=== PATIENT | female | born 1975 | race Caucasian/White ===

== ENCOUNTER 2016-11-25 11:20 | Emergency (ER) | payer MEDICAID ==
[2016-11-25 12:36] LABS: BASOPHILS 0.6 % (0.0-2.0); EOSINOPHILS 2.1 % (0-7); HEMATOCRIT 28.8 % (36.0-48.0); HEMOGLOBIN 7.9 g/dL (12-16); IMMATURE GRANULOCYTES 0.1 % (0-5); LYMPHOCYTES 18.2 % (15-50); MCHC 27.4 g/dL (31.0-37.0); MCV 64.4 fL (80.0-100.0); MEAN PLATELET VOLUME 9.7 fL (7.4-10.4); MONOCYTES 7.5 % (2-11); NEUTROPHILS 71.5 % (40-80); PLATELET COUNT 300 10x3/uL (130-400); RBC 4.47 10x6/uL (4.00-5.40); RDW 20.4 % (11.5-14.5); WBC 6.8 10x3/uL (4.8-10.8)
[2016-11-25 12:37] LABS: MCH 17.7 pg (26.0-34.0)
[2016-11-25 12:49] LABS: ALKALINE PHOSPHATASE 63 U/L (46-116); ALT (SGPT) 18 U/L (10-68); BILIRUBIN - TOTAL 0.15 mg/dL (0.2-1.3); CALC OSMOLALITY 280 mosm/kg (275-300); CALCIUM 8.8 mg/dL (8.5-10.1); CARBON DIOXIDE 27.4 mmol/L (21.0-32.0); CHLORIDE - SERUM 106 mmol/L (98-107); CREATININE - SERUM 0.5 mg/dL (0.6-1.3); GLUCOSE 102 mg/dL (74-106); POTASSIUM - SERUM 3.8 mmol/L (3.5-5.1); PROTEIN - SERUM 7.3 g/dL (6.4-8.2); SODIUM 142 mmol/L (136-145); UREA NITROGEN 8 mg/dL (7-18); eGFR NON AFRICAN AMERICAN > 90 mL/min (90-120)
[2016-11-25 15:20] LABS: INR 0.99 (0.85-1.17)
[2016-11-25 15:22] LABS: UDS - AMPHET NEGATIVE QUAL (NEGATIVE); UDS - BARB POSITIVE QUAL (NEGATIVE); UDS - BENZO NEGATIVE QUAL (NEGATIVE); UDS - COCAINE NEGATIVE QUAL (NEGATIVE); UDS - METH NEGATIVE QUAL (NEGATIVE); UDS - OPIATE POSITIVE QUAL (NEGATIVE); UDS - PCP NEGATIVE QUAL (NEGATIVE); UDS - THC NEGATIVE QUAL (NEGATIVE)
[2016-11-25 15:24] LABS: APPEARANCE CLEAR (CLEAR); COLOR YELLOW (YELLOW)
[2016-11-25 15:25] LABS: BILIRUBIN NEGATIVE (NEGATIVE); GLUCOSE NEGATIVE (NEGATIVE); KETONE NEGATIVE (NEGATIVE); LEUKOCYTE ESTERASE TRACE (NEGATIVE); NITRITE NEGATIVE (NEGATIVE); PROTEIN NEGATIVE (NEGATIVE); UROBILINOGEN NORMAL (NORMAL)
[2016-11-25 15:26] LABS: BACTERIA FEW /hpf (NONE SEEN); EPITHELIAL CELLS 0-5 /hpf (0-5); MUCUS <1+ /lpf (NONE SEEN); RED CELLS - URINE NONE SEEN /hpf (0-5); WHITE CELLS - URINE 0-5 /hpf (0-5)
[2016-11-25 15:28] LABS: HCG URINE NEGATIVE (NEGATIVE)
== END 2016-11-25 17:44 | disposition home or self-care (01) ==
LOC: D.ER 11:20
PROVIDERS: Emergency Medicine; Nurse Practitioner Family
DX: R51 Headache (principal); D64.9 Anemia, unspecified

== ENCOUNTER 2016-12-10 09:45 | Emergency (ER) | payer MEDICAID | END 2016-12-10 11:29 | disposition home or self-care (01) | LOC: D.ER 09:45 | DX: R51 Headache (principal) ==

== ENCOUNTER 2017-05-11 15:39 | Emergency (ER) | payer MEDICAID ==
[2017-05-11 16:39] LABS: APPEARANCE HAZY (CLEAR); BILIRUBIN NEGATIVE (NEGATIVE); COLOR YELLOW (YELLOW); GLUCOSE NEGATIVE (NEGATIVE); KETONE NEGATIVE (NEGATIVE); LEUKOCYTE ESTERASE 2+ (NEGATIVE); NITRITE POSITIVE (NEGATIVE); PROTEIN TRACE mg/dL (NEGATIVE); SPECIFIC GRAVITY 1.025 (1.005-1.020); UROBILINOGEN NORMAL (NORMAL)
[2017-05-11 16:40] LABS: BACTERIA MODERATE /hpf (NONE SEEN); EPITHELIAL CELLS 0-5 /hpf (0-5); RED CELLS - URINE 0-5 /hpf (0-5); WHITE CELLS - URINE >50 /hpf (0-5)
[2017-05-11 17:10] LABS: BASOPHILS 0.2 % (0-2); EOSINOPHILS 1.4 % (0-7); HEMATOCRIT 32.6 % (36.0-48.0); HEMOGLOBIN 10.2 g/dL (12-16); IMMATURE GRANULOCYTES 0.1 % (0-5); LYMPHOCYTES 10.9 % (15-50); MCHC 31.3 g/dL (31.0-37.0); MCV 79.9 fL (80.0-100.0); MEAN PLATELET VOLUME 10.6 fL (7.4-10.4); MONOCYTES 7.9 % (2-11); NEUTROPHILS 79.5 % (40-80); RBC 4.08 10x6/uL (4.00-5.40); WBC 9.4 10x3/uL (4.8-10.8)
[2017-05-11 17:34] LABS: UDS - AMPHET POSITIVE QUAL (NEGATIVE); UDS - BARB NEGATIVE QUAL (NEGATIVE); UDS - BENZO POSITIVE QUAL (NEGATIVE); UDS - COCAINE NEGATIVE QUAL (NEGATIVE); UDS - METH NEGATIVE QUAL (NEGATIVE); UDS - OPIATE POSITIVE QUAL (NEGATIVE); UDS - PCP NEGATIVE QUAL (NEGATIVE); UDS - THC NEGATIVE QUAL (NEGATIVE)
[2017-05-11 17:34] LABS: ALBUMIN 3.3 g/dL (3.4-5.0); ANION GAP 8.2 mmol/L (8-16); BILIRUBIN - TOTAL 0.4 mg/dL (0.2-1.3); CALCIUM 8.1 mg/dL (8.5-10.1); CARBON DIOXIDE 31.5 mmol/L (21.0-32.0); CREATININE - SERUM 0.9 mg/dL (0.6-1.3); POTASSIUM - SERUM 3.7 mmol/L (3.5-5.1); PROTEIN - SERUM 6.3 g/dL (6.4-8.2)
[2017-05-11 17:40] LABS: PLATELET COUNT 233 10x3/uL (130-400)
== END 2017-05-11 20:53 | disposition home or self-care (01) ==
LOC: D.ER 15:39
PROVIDERS: Emergency Medicine; Nurse Practitioner Family
DX: R10.9 Unspecified abdominal pain (principal); N10 Acute pyelonephritis; N13.30 Unspecified hydronephrosis; R60.9 Edema, unspecified; R11.0 Nausea

== ENCOUNTER 2017-06-26 17:12 | Emergency (ER) | payer MEDICAID | END 2017-06-26 17:55 | disposition home or self-care (01) | LOC: D.ER 17:12 | DX: Z03.89 Encounter for observation for other suspected diseases and conditions ruled out (principal) ==

== ENCOUNTER 2018-05-30 08:41 | Emergency (ER) | payer OTHER ==
[~2018-05-30] VITALS: Ht 160 cm; Wt 59.1 kg
[2018-05-30 08:47] VITALS: Ht 160 cm; Wt 59.1 kg
[2018-05-30] MEDS ORDERED: EFFEXOR100 MG PO (08:49)
[2018-05-30] MEDS ORDERED: KLONOPIN0.5 MG PO (08:50)
[2018-05-30] MEDS ORDERED: TOPAMAX100 MG PO (08:50)
[2018-05-30] MEDS ORDERED: TYLENOL #4 W/CO1 TAB PO (08:51)
[2018-05-30 09:52] LABS: ALBUMIN 3.6 g/dL (3.4-5.0); ALKALINE PHOSPHATASE 56 U/L (46-116); ALT (SGPT) 27 U/L (10-68); BILIRUBIN - TOTAL 0.32 mg/dL (0.2-1.3); CALC OSMOLALITY 274 mosm/kg (275-300); CALCIUM 7.8 mg/dL (8.5-10.1); CARBON DIOXIDE 26.3 mmol/L (21.0-32.0); CHLORIDE - SERUM 107 mmol/L (98-107); CREATININE - SERUM 0.7 mg/dL (0.6-1.3); GLUCOSE 75 mg/dL (74-106); POTASSIUM - SERUM 3.6 mmol/L (3.5-5.1); PROTEIN - SERUM 6.6 g/dL (6.4-8.2); SODIUM 139 mmol/L (136-145); UREA NITROGEN 7 mg/dL (7-18); eGFR NON AFRICAN AMERICAN > 90 mL/min (90-120)
[2018-05-30 09:57] LABS: APPEARANCE HAZY (CLEAR); BILIRUBIN NEGATIVE (NEGATIVE); COLOR YELLOW (YELLOW); GLUCOSE NEGATIVE (NEGATIVE); KETONE NEGATIVE (NEGATIVE); NITRITE NEGATIVE (NEGATIVE); PROTEIN NEGATIVE (NEGATIVE); RED CELLS - URINE 0-5 /hpf (0-5); SPECIFIC GRAVITY 1.005 (1.005-1.020); UROBILINOGEN NORMAL (NORMAL)
[2018-05-30 09:58] LABS: AMORPHOUS SEDIMENT >1+ /lpf (NONE SEEN); BACTERIA FEW /hpf (NONE SEEN); EPITHELIAL CELLS 0-5 /hpf (0-5); GRANULAR CAST RARE /lpf (NONE SEEN); MUCUS <1+ /lpf (NONE SEEN)
[2018-05-30 09:58] LABS: HCG SERUM NEGATIVE (NEGATIVE)
[2018-05-30 10:05] LABS: BASOPHILS 0.5 % (0-2); EOSINOPHILS 5.1 % (0-7); HEMATOCRIT 35.3 % (36.0-48.0); HEMOGLOBIN 11.3 g/dL (12-16); IMMATURE GRANULOCYTES 0.2 % (0-5); LYMPHOCYTES 25.5 % (15-50); MCH 27.1 pg (26.0-34.0); MCV 84.7 fL (80.0-100.0); MEAN PLATELET VOLUME 10.6 fL (7.4-10.4); MONOCYTES 8.9 % (2-11); NEUTROPHILS 59.8 % (40-80); PLATELET COUNT 229 10x3/uL (130-400); RBC 4.17 10x6/uL (4.00-5.40); WBC 4.3 10x3/uL (4.8-10.8)
[2018-05-30 14:12] VITALS: BP 108/68
== END 2018-05-30 14:13 | disposition home or self-care (01) ==
LOC: D.ER 08:41
PROVIDERS: Family Medicine
DX: N93.8 Other specified abnormal uterine and vaginal bleeding (principal); R10.30 Lower abdominal pain, unspecified; F17.200 Nicotine dependence, unspecified, uncomplicated

== ENCOUNTER 2018-06-14 21:54 | Emergency (ER) | payer MEDICAID ==
[~2018-06-14] VITALS: Ht 160 cm; Wt 59.1 kg
[~2018-06-14 21:54] MED LIST: EFFEXOR100 MG PO; KLONOPIN0.5 MG PO; TOPAMAX100 MG PO; TYLENOL #4 W/CO1 TAB PO
[2018-06-14 22:02] VITALS: Ht 160 cm; Wt 59.1 kg
[2018-06-14 22:56] LABS: HCG URINE NEGATIVE (NEGATIVE)
[2018-06-14 23:00] LABS: UDS - AMPHET NEGATIVE QUAL (NEGATIVE); UDS - BARB POSITIVE QUAL (NEGATIVE); UDS - BENZO NEGATIVE QUAL (NEGATIVE); UDS - COCAINE NEGATIVE QUAL (NEGATIVE); UDS - OPIATE NEGATIVE QUAL (NEGATIVE); UDS - PCP NEGATIVE QUAL (NEGATIVE); UDS - THC NEGATIVE QUAL (NEGATIVE)
[2018-06-15 00:16] VITALS: BP 105/60
== END 2018-06-15 00:16 | disposition home or self-care (01) ==
LOC: D.ER 21:54
PROVIDERS: Family Medicine
DX: S23.3XXA Sprain of ligaments of thoracic spine, initial encounter (principal); X58.XXXA Exposure to other specified factors, initial encounter; Y93.89 Activity, other specified; Y92.89 Other specified places as the place of occurrence of the external cause

== ENCOUNTER 2018-08-24 22:31 | Emergency (ER) | payer OTHER ==
[~2018-08-24] VITALS: Ht 160 cm; Wt 59.1 kg
[2018-08-24 22:41] VITALS: BP 107/65; Ht 160 cm; Wt 59.1 kg
== END 2018-08-24 23:48 | disposition home or self-care (01) ==
LOC: D.ER 22:31
DX: M79.672 Pain in left foot (principal); Z87.81 Personal history of (healed) traumatic fracture; F17.200 Nicotine dependence, unspecified, uncomplicated

== ENCOUNTER 2018-10-02 16:40 | Emergency (ER) | payer OTHER ==
[~2018-10-02] VITALS: Ht 160 cm; Wt 61.4 kg
[2018-10-02 17:09] VITALS: BP 117/66; Ht 160 cm; Wt 61.4 kg
== END 2018-10-02 18:38 | disposition left against medical advice (07) ==
LOC: D.ER 16:40
DX: R05 Cough (principal); R09.89 Other specified symptoms and signs involving the circulatory and respiratory systems; M79.18 Myalgia, other site

== ENCOUNTER 2018-10-14 13:46 | Inpatient (IN) | payer OTHER ==
[~2018-10-14] VITALS: Ht 160 cm; Wt 61.2 kg
[2018-10-14 14:31] LABS: APPEARANCE HAZY (CLEAR); BILIRUBIN NEGATIVE (NEGATIVE); COLOR YELLOW (YELLOW); GLUCOSE NEGATIVE (NEGATIVE); KETONE NEGATIVE (NEGATIVE); NITRITE NEGATIVE (NEGATIVE); PH 6.5 (5.0-6.0); PROTEIN NEGATIVE (NEGATIVE); SPECIFIC GRAVITY 1.015 (1.005-1.020); UROBILINOGEN NORMAL (NORMAL)
[2018-10-14 14:37] LABS: RED CELLS - URINE RARE /hpf (0-5); WHITE CELLS - URINE RARE /hpf (0-5)
[2018-10-14 14:38] LABS: AMORPHOUS SEDIMENT >1+ /lpf (NONE SEEN); BACTERIA FEW /hpf (NONE SEEN); EPITHELIAL CELLS OCC /hpf (0-5); GRANULAR CAST 0-5 /lpf (NONE SEEN); HYALINE CAST RARE /lpf (NONE SEEN)
[2018-10-14 14:41] LABS: BASOPHILS 0.4 % (0-2); EOSINOPHILS 5.7 % (0-7); HEMATOCRIT 31.2 % (36.0-48.0); HEMOGLOBIN 9.2 g/dL (12-16); IMMATURE GRANULOCYTES 0.1 % (0-5); MCH 22.4 pg (26.0-34.0); MCHC 29.5 g/dL (31.0-37.0); MCV 75.9 fL (80.0-100.0); MEAN PLATELET VOLUME 10.1 fL (7.4-10.4); MONOCYTES 8.3 % (2-11); NEUTROPHILS 67.5 % (40-80); PLATELET COUNT 268 10x3/uL (130-400); RBC 4.11 10x6/uL (4.00-5.40); WBC 7.6 10x3/uL (4.8-10.8)
[2018-10-14 14:54] LABS: ALBUMIN 3.6 g/dL (3.4-5.0); ALKALINE PHOSPHATASE 63 U/L (46-116); ALT (SGPT) 17 U/L (10-68); CALC OSMOLALITY 279 mosm/kg (275-300); CALCIUM 8.1 mg/dL (8.5-10.1); CARBON DIOXIDE 24.4 mmol/L (21.0-32.0); CHLORIDE - SERUM 107 mmol/L (98-107); CREATININE - SERUM 0.9 mg/dL (0.6-1.3); GLUCOSE 91 mg/dL (74-106); POTASSIUM - SERUM 3.7 mmol/L (3.5-5.1); PROTEIN - SERUM 6.6 g/dL (6.4-8.2); SODIUM 141 mmol/L (136-145); UREA NITROGEN 10 mg/dL (7-18); eGFR NON AFRICAN AMERICAN 73 mL/min (90-120)
[2018-10-14 14:57] LABS: AMYLASE - SERUM 35 U/L (25-115); LIPASE 147 U/L (73-393); TROPONIN-I < 0.017 ng/mL (0.000-0.060)
[2018-10-14 15:51] VITALS: BP 121/84
[2018-10-14 17:46] VITALS: BP 109/70
[2018-10-14] MEDS ORDERED: TYLENOL #4 W/CO1 TAB PO (18:25)
[2018-10-14] MEDS ORDERED: BUPROPION XL300 MG PO (18:26)
[2018-10-14] MEDS ORDERED: CELEXA40 MG PO (18:26)
[2018-10-14] MEDS ORDERED: GABAPENTIN100 MG PO (18:26)
--- NOTE | 2018-10-15 00:27 | NUR ---
LYING ON RT SIDE IN BED. EYES CLOSED. RESP EVEN AND NONLABORED. IV INFUSING IN LT AC WITHOUT DIFF. NO DISTRESS. CL IN REACH.
[2018-10-15 01:14] VITALS: BP 94/63; BMI 23.9
[2018-10-15 07:07] LABS: BASOPHILS 0.5 % (0-2); EOSINOPHILS 7.4 % (0-7); HEMATOCRIT 28.2 % (36.0-48.0); HEMOGLOBIN 8.3 g/dL (12-16); LYMPHOCYTES 22.7 % (15-50); MCH 22.3 pg (26.0-34.0); MCHC 29.4 g/dL (31.0-37.0); MCV 75.6 fL (80.0-100.0); MEAN PLATELET VOLUME 10.5 fL (7.4-10.4); MONOCYTES 8.4 % (2-11); RBC 3.73 10x6/uL (4.00-5.40); RDW 19.2 % (11.5-14.5)
[2018-10-15 07:19] LABS: PLATELET COUNT 214 10x3/uL (130-400); WBC 4.1 10x3/uL (4.8-10.8)
[2018-10-15 07:21] LABS: ALBUMIN 2.8 g/dL (3.4-5.0); ALKALINE PHOSPHATASE 48 U/L (46-116); ALT (SGPT) 18 U/L (10-68); BILIRUBIN - TOTAL 0.32 mg/dL (0.2-1.3); CALCIUM 7.4 mg/dL (8.5-10.1); CHLORIDE - SERUM 112 mmol/L (98-107); GLUCOSE 91 mg/dL (74-106); POTASSIUM - SERUM 3.9 mmol/L (3.5-5.1); PROTEIN - SERUM 5.3 g/dL (6.4-8.2); SODIUM 141 mmol/L (136-145)
[2018-10-15 07:22] LABS: CALC OSMOLALITY 278 mosm/kg (275-300); CREATININE - SERUM 0.6 mg/dL (0.6-1.3); UREA NITROGEN 7 mg/dL (7-18); eGFR NON AFRICAN AMERICAN > 90 mL/min (90-120)
--- NOTE | 2018-10-15 08:10 | NUR ---
PT LAYING IN BED RESTING WITH EYES CLOSED, AWOKEN EASILY TO VERBAL STIMULI. RESPIRATIONS EVEN AND UNLABORED, NO S/S OF DISTRESS NOTED. LCTA. BOWEL SOUNDS HYPOACTIVE X4 QUAD. DENIES NEEDS AT THIS TIME. BED LOW AND LOCKED, SR UP X2, CL IN EASY REACH. WILL CONTINUE TO MONITOR THROUGHOUT THE DAY.
--- NOTE | 2018-10-15 10:47 | NUR ---
PT MEDICATED WITH 4MG MORPHINE PER EMAR ORDER FOR REPORTS OF PAIN OF 8 OUT OF 10 ON A NUMERICAL SCALE. DENIES FURTHER NEEDS. CL IN EASY REACH.
[2018-10-15 12:00] VITALS: BP 90/62
[2018-10-15 16:00] VITALS: BP 92/58
[2018-10-15 17:48] LABS: APTT 30.8 SECONDS (22.8-39.4); INR 1.14 (0.85-1.17); PROTIME 14.1 SECONDS (11.6-15.0)
[2018-10-15 20:39] VITALS: BP 101/66
--- NOTE | 2018-10-16 02:13 | NUR ---
PT SLEEPING. BREATHING EVEN AND UNLABORED. WILL CONTINUE POC.
[2018-10-16 04:46] VITALS: BP 91/50
[2018-10-16 08:08] VITALS: BP 106/63
[2018-10-16 08:18] LABS: ALBUMIN 3.1 g/dL (3.4-5.0); ALKALINE PHOSPHATASE 49 U/L (46-116); ALT (SGPT) 17 U/L (10-68); BILIRUBIN - TOTAL 0.21 mg/dL (0.2-1.3); CALC OSMOLALITY 278 mosm/kg (275-300); CALCIUM 8.1 mg/dL (8.5-10.1); CARBON DIOXIDE 20.9 mmol/L (21.0-32.0); CHLORIDE - SERUM 111 mmol/L (98-107); CREATININE - SERUM 0.7 mg/dL (0.6-1.3); GLUCOSE 82 mg/dL (74-106); MAGNESIUM - SERUM 2.2 mg/dL (1.8-2.4); POTASSIUM - SERUM 3.7 mmol/L (3.5-5.1); PROTEIN - SERUM 5.7 g/dL (6.4-8.2); SODIUM 142 mmol/L (136-145); UREA NITROGEN 4 mg/dL (7-18); eGFR NON AFRICAN AMERICAN > 90 mL/min (90-120)
--- NOTE | 2018-10-16 09:54 | NUR ---
MORPHINE 4 M GIVEN IVP FOR LEVEL #9 FOR LOWER BACK PAIN.
[2018-10-16 12:16] VITALS: BP 109/68
--- NOTE | 2018-10-16 13:45 | NUR ---
TO GI LAB FOR EGD VIA BED.
--- NOTE | 2018-10-16 14:10 | NUR ---
1400 IV LEFT AC HAS INFILTRATED, RESITED TO RIGHT HAND WITH 20G JELCO.
[2018-10-16 14:54] VITALS: BMI 23.9
--- NOTE | 2018-10-16 15:40 | NUR ---
RETURN TO ROOM FROM GI LAB.
[2018-10-16 17:21] VITALS: BP 90/58
[2018-10-16 18:16] VITALS: Ht 160 cm; Wt 61.2 kg
--- NOTE | 2018-10-16 19:09 | NUR ---
PATIENT IS SLEEPING. BED IS DOWN LOW WITH SIDE RAILS UP X2. CALL LIGHT IS IN REACH.
[2018-10-16 20:00] VITALS: BP 78/41
[2018-10-17 01:32] VITALS: BP 94/59
[2018-10-17 04:00] VITALS: BP 95/58
[2018-10-17 07:14] LABS: ALBUMIN 2.7 g/dL (3.4-5.0); ALKALINE PHOSPHATASE 48 U/L (46-116); ALT (SGPT) 15 U/L (10-68); CALCIUM 7.5 mg/dL (8.5-10.1); CARBON DIOXIDE 23.5 mmol/L (21.0-32.0); CHLORIDE - SERUM 111 mmol/L (98-107); CREATININE - SERUM 0.7 mg/dL (0.6-1.3); GLUCOSE 77 mg/dL (74-106); MAGNESIUM - SERUM 2.1 mg/dL (1.8-2.4); POTASSIUM - SERUM 3.8 mmol/L (3.5-5.1); PROTEIN - SERUM 5.3 g/dL (6.4-8.2); SODIUM 142 mmol/L (136-145); eGFR NON AFRICAN AMERICAN > 90 mL/min (90-120)
[2018-10-17 07:15] LABS: CALC OSMOLALITY 279 mosm/kg (275-300); UREA NITROGEN 6 mg/dL (7-18)
[2018-10-17 08:32] VITALS: BP 91/56
--- NOTE | 2018-10-17 10:43 | NUR ---
PT ASKING FOR HEMORRHOID CREAM, CALLED [facility]INA BRAUN AND GOT ORDER FOR HEMARRHOID CREAM. PT A/O X4, RESP EVEN AND NONLABORED ON RA.
--- NOTE | 2018-10-17 11:05 | NUR ---
NOTIFIED BY MOODY FROM [facility], THAT PT IS VERY UPSET BECAUSE SHE DOES NOT KNOW WHAT'S GOING ON, AND SHE WAS TOLD BY DR. GRAY THAT SHE COULD BE D/C. WENT AND TALKED TO PT, WENT OVER PLAN OF CARE, EXPLAINED TO HER THAT DR. GRAY IS NOT ON HER CASE THE ONLY DOCTORS ON HER CASE ARE DR. OCONNOR, DR. STILES AND DR. HWANG. INFORMED PT THAT DR. HWANG WOULD BE BY LATER TO SEE HER AND DECIDE IF SHE IS READY FOR DISCHARGE OR NOT. ALSO EXPLAINED TO PT WHAT IS BEING USED TO TREAT HER ULCERS. PT VERBALZED UNDERSTANDING, NO OTHER QUESTIONS OR CONCERNS AT THIS TIME.
--- NOTE | 2018-10-17 11:09 | MORECARE ---
CASE MANAGEMENT DISCHARGE SUMMARY PATIENT: LADONNA MARTINEZ UNIT: [id number] ADM DATE: 10/14/18 AGE: 43 : [birth year] SEX: F ROOM/BED: D.1212 AUTHOR: YG STARR PHYSICIAN: REFERRING PHYSICIAN: KRISTEN COHN MD DATE OF SERVICE: 10/17/18 Discharge Plan Patient Name: LADONNA MARTINEZ [facility] [facility] 1975 Planned Disposition: Home Anticipated Discharge Date: Discharge Date: Expected LOS: Initial Reviewer: [email or web address] Initial Review Date: 10/17/2018 Generated: 10/17/18 12:09 pm DCPIA - Discharge Planning Initial Assessment Updated by [email or web address]: Mary Stephens on 10/17/18 11:09 am * Is the patient Alert and Oriented? Yes * PCP NONE/SUKI * Pharmacy [facility] * Preadmission Environment Home with Family * ADLs Independent * Equipment None * List name and contact numbers for known caregivers / representatives who currently or will assist patient after discharge: WIL [phone] * Community resources currently utilized None * Additional services required to return to the preadmission environment? No * Can the patient safely return to the preadmission environment? Yes * Has this patient been hospitalized within the prior 30 days at any hospital? Yes Patient Name: LADONNA MARTINEZ Page [phone] at 1109 All edits/amendments must be made on the electronic document DICTATION DATE: 10/17/18 110 AVP: WILLOW 10/17/18 1109 RPT#: [id number] DC DATE: STATUS: ADM IN [facility] [address] [place] [address] END OF REPORT
--- NOTE | 2018-10-17 11:18 | MORECARE ---
CASE MANAGEMENT DISCHARGE SUMMARY PATIENT: LADONNA MARTINEZ UNIT: [id number] ADM DATE: 10/14/18 AGE: 43 : 79 SEX: F ROOM/BED: D.1212 AUTHOR: YG STARR PHYSICIAN: REFERRING PHYSICIAN: KRISTEN COHN MD DATE OF SERVICE: 10/17/18 Discharge Plan Patient Name: LADONNA MARTINEZ Facility: [facility]:[place] : 1975 Planned Disposition: Home Anticipated Discharge Date: Discharge Date: Expected LOS: Initial Reviewer: [email or web address] Initial Review Date: 10/17/2018 Generated: 10/17/18 12:18 pm Comments DCP- Discharge Planning Updated by [email or web address]: Mary Stephens on 10/17/18 10:[address] Patient Name: LADONNA MARTINEZ Admission Status: ER Accout number: [id number] Admission Date: 10-14-2018 : 1975 Admission Diagnosis: Attending: SUKI, Current LOS: 3 Anticipated DC Date: Planned Disposition: Home Primary Insurance: [email or web address] MEDICAID Discharge Planning Comments: CM MET WITH PATIENT ABOUT DC PLANNING/NEEDS. STATES NO NEEDS AT THIS TIME. STATES SHE WILL POSSIBLY BE DISCHARGED TODAY. CM WILL FOLLOW AND ASSIST NEEDED WITH DC PLANNING/NEEDS. STATES USED DR. COHN IN THE PAST AND PLANS TO HAVE HIM HER PCP IF HE CAN TAKE HER. Solution Sales Senior Executive: Mary Stephens DCPIA - Discharge Planning Initial Assessment Updated by [email or web address]: Mary Stephens on 10/17/18 11:09 am * Is the patient Alert and Oriented? Yes * PCP NONE/SUKI * Pharmacy [facility] * Preadmission Environment Home with Family * ADLs Independent * Equipment None * List name and contact numbers for known caregivers / representatives who currently or will assist patient after discharge: WIL, * Community resources currently utilized None * Additional services required to return to the preadmission environment? No * Can the patient safely return to the preadmission environment? Yes * Has this patient been hospitalized within the prior 30 days at any hospital? Yes Last DP export: 10/17/18 10:09 a Patient Name: LADONNA MARTINEZ Page [id number] at 1118 All edits/amendments must be made on the electronic document DICTATION DATE: 10/17/181116 LITERACY TEACHER: WILLOW 10/17/181116 RPT#: [id number] DC DATE: STATUS: ADM IN [facility] [address] [place] [address] END OF REPORT
--- NOTE | 2018-10-17 12:06 | NUR ---
COMPLETE LINEN CHANGE AT THIS TIME.
--- NOTE | 2018-10-17 16:23 | OP ---
PATIENT NAME: LADONNA MARTINEZ MEDICAL RECORD: [id number] :[birth year] LOCATION:D.M3 D.1212 ADMISSION DATE:10/14/18 SURGEON: YORDAN OCONNOR MD DATE OF OPERATION: 10/16/2018 PREOPERATIVE DIAGNOSES: 1. Abnormal CT scan, worrisome for gastric malignancy. 2. Epigastric abdominal pain. 3. Mid back pain. POSTOPERATIVE DIAGNOSES: 1. Abnormal CT scan, worrisome for gastric malignancy. 2. Epigastric abdominal pain. 3. Mid back pain. 4. No evidence of gastric malignancy. 5. Severe antral gastritis with multiple antral ulcers, which appeared to be acute. 6. Moderate bulbar duodenitis with erosions. 7. Moderately sized hiatal hernia. 8. Rule out Ramirez's esophagus. PROCEDURE: Esophagogastroduodenoscopy with antral and distal esophageal biopsies. SURGEON: Yordan Oconnor MD SEO CONSULTANT: None. BLOOD LOSS: Minimal. ANESTHESIA: IV sedation. COMPLICATIONS: None. The risks, possible complications, and alternatives to the procedure were explained to the patient. She elected to proceed. The discussion specifically included, but was not limited to, bleeding, requiring emergency reoperation; infection; gastric perforation; and possible need for additional endoscopic therapies. ENDOSCOPIC COURSE: The patient was conveyed to the endoscopy suite electively on 10/16/2018. IV sedation was induced by the anesthesia staff. A bite block was inserted. A gastroscope was inserted into the mouth. It was advanced easily into the hypopharynx. The esophagus was easily intubated as were the stomach and duodenum. Upon withdrawal, retroflexed and angulus views were obtained. Antral biopsies were obtained in the area of the ulcers. I then withdrew into the distal esophagus. Narrow band imaging was utilized. It appeared that there may be Ramirez's esophagus present. Multiple four-quadrant biopsies were obtained at the esophagogastric junction. The endoscope was then withdrawn under direct vision. We will await the results of the biopsies. I think that she can be dismissed home tomorrow. There is a distinct possibility that her peptic ulcer disease may be due to Helicobacter pylori. This is refractory disease as the patient has been on proton pump inhibitor and Carafate. OPERATIVE REPORT [id number] LADONNA MARTINEZ TRANSINT:[id number] Voice Confirmation ID: [id number] DOCUMENT ID: [id number] YORDAN OCONNOR MD at 1623 CC: [id number] DICTATION DATE: 10/16/18 1711 COMMUNICATIONS DIRECTOR: 10/17/18 0000 ADM IN [place] [id number] [place] [id number]
[2018-10-17 20:14] VITALS: BP 98/64
--- NOTE | 2018-10-17 20:30 | NUR ---
PT YELLING OUT IN THE BOND I GO INTO ANOTHER ROOM STATING " I HAVENT SEEN A NURSE IN 2 HOURS" I INFORMED PT THAT I WOULD BE WITH HE IN ONE MOMENT. PT YELLED THAT SHE WAS IN PAIN AND NEEDED MEDICINE NOW.
[2018-10-18] VITALS: BP 84/45
--- NOTE | 2018-10-18 00:15 | NUR ---
PT A/O. TOOK MEDICATIONS WITHOUT DIFFICULTY. KLONOPIN HELD, PT WANTED DILAUDID INSTEAD OF KLONOPIN AND INFORMED PT THAT SHE CANT HAVE BOTH WITH A LOW BP. PT STATED THAT HER BP ALWAYS RUNS LOW. NORMAL SINUS ON TELE. NS @ 125 TO R HAND. ROOM AIR. NO FURTHER CONCERNS AT THIS TIME. BED LOWERED AND LOCKED. CL IN REACH. WILL CPOC.
[2018-10-18 02:37] LABS: HCG URINE NEGATIVE (NEGATIVE)
[2018-10-18 04:00] VITALS: BP 105/55
--- NOTE | 2018-10-18 05:24 | NUR ---
PATIENT RESTING IN BED WITH EYES CLOSED AND NO S/S OF DISTRESS. BED IN LOWEST POSITION AND CALL LIGHT WITHIN REACH. WILL CONTINUE TO MONITOR.
--- NOTE | 2018-10-18 06:23 | NUR ---
AM ROUNDS COMPLETED. TOOK OVER CARE FOR PT FROM [facility]. PT IS IN TEARS STATING SHE IS IN SEVERE PAIN SHE AMBULATED OUT TO THE NURSES STATION CRYING STATING "NOONE WILL HELP ME" EXPLAINED TO PT WE JUST SWITCHED OVER AND THAT I WILL GET HER SOMETHING FOR PAIN. PROVIDED PT WITH PRN DILAUDID AND WALKED HER BACK INTO HER ROOM. PT VOICED THANKS AND STATES SHE IS JUST VERY ANXIOUS AND HURTING. ENCOURAGED PT TO REST NOW THAT SHE HAS HER PAIN MEDICATION AND WILL CPOC.
[2018-10-18 07:48] LABS: ALBUMIN 3.1 g/dL (3.4-5.0); ALKALINE PHOSPHATASE 61 U/L (46-116); ALT (SGPT) 15 U/L (10-68); BILIRUBIN - TOTAL 0.14 mg/dL (0.2-1.3); CALC OSMOLALITY 276 mosm/kg (275-300); CALCIUM 7.8 mg/dL (8.5-10.1); CARBON DIOXIDE 23.6 mmol/L (21.0-32.0); CHLORIDE - SERUM 109 mmol/L (98-107); CREATININE - SERUM 0.7 mg/dL (0.6-1.3); GLUCOSE 77 mg/dL (74-106); MAGNESIUM - SERUM 2.1 mg/dL (1.8-2.4); POTASSIUM - SERUM 3.7 mmol/L (3.5-5.1); PROTEIN - SERUM 5.5 g/dL (6.4-8.2); SODIUM 141 mmol/L (136-145); eGFR NON AFRICAN AMERICAN > 90 mL/min (90-120)
[2018-10-18 07:52] LABS: UREA NITROGEN 4 mg/dL (7-18)
[2018-10-18 11:05] VITALS: BP 101/60
[2018-10-18 14:11] VITALS: BP 87/55
[2018-10-18 17:20] VITALS: BP 90/57
--- NOTE | 2018-10-18 19:32 | NUR ---
PT RESTING IN BED, RESP EVEN AND UNLABORED. AAO AND UP AD GLENN. PT HAS NO S/S OF DISTRESS. NAME AND DATE PLACED ON BOARD. PT FALLING ASLEEP AROUSES TO VERBAL STIMULI. SPEECH SLIGHTLY SLURRED IF TIRED. DENIES ANY NEEDS. PT STATES SHE JUST NEEDS SOME REST. PT BEDLOW AND CALL LIGHT IN REACH. NAME AND DATE PLACED ON BOARD. WILL CPOC
[2018-10-18 20:00] VITALS: BP 107/55
--- NOTE | 2018-10-18 21:06 | NUR ---
PT COMPLAINING OF PAIN IN BACK. PT AAO. LEFT AC SWOLLEN FROM IV, CORY GIVE ICE PACK. PT HAS NO S/S OF DISTRESS. ASSESSMENT COMPLETE. PT BEDLOW AND CALL LIGHT IN REACH. WILL CPOC
--- NOTE | 2018-10-18 23:10 | NUR ---
CALLED DR HWANG REGARDING 1729 IRON NOT GIVEN R/T PT NOT HAVING AN IV ACCESS. HE STATED JUST SKIP THE DOSE HE WILL ADDRESS IT TOMORROW.
[2018-10-19] VITALS: BP 107/55
--- NOTE | 2018-10-19 02:00 | NUR ---
DANNYCO GIVEN FOR BACK PAIN. PT COMPLAINING ABOUT NOT SEENING DR STILES YET. WILL CHECK ORDERS. NO OTHER NEEDS. [facility]
[2018-10-19 04:00] VITALS: BP 91/47
--- NOTE | 2018-10-19 06:20 | NUR ---
PT ASKING FOR PAIN MEDS, WANTING TO SMOKE ADVISED PT NOT TO GO, WITH PAIN MEDS AND PAIN PT DOESNT NEED TO WALK OFF ALONE PT VERBALIZED UNDERSTANDING. PT CRYING ABOUT PAIN AND HOW SMOKING HELPS HER PAIN SOMETIMES. PT HAS NO S/S OF DISTRESS. BEDLOW AND CALL LIGHT IN REACH. PT NOW OK AND NOT CRYING. DENIES ANY OTHER NEEDS. WILL CPOC
[2018-10-19 06:34] LABS: BASOPHILS 0.3 % (0-2); EOSINOPHILS 9.2 % (0-7); HEMATOCRIT 29.3 % (36.0-48.0); HEMOGLOBIN 8.5 g/dL (12-16); IMMATURE GRANULOCYTES 0.1 % (0-5); LYMPHOCYTES 14.5 % (15-50); MCH 22.3 pg (26.0-34.0); MCV 76.9 fL (80.0-100.0); MONOCYTES 10.6 % (2-11); NEUTROPHILS 65.3 % (40-80); PLATELET COUNT 221 10x3/uL (130-400); RBC 3.81 10x6/uL (4.00-5.40); WBC 6.9 10x3/uL (4.8-10.8)
[2018-10-19 06:58] LABS: ALBUMIN 2.8 g/dL (3.4-5.0); ALKALINE PHOSPHATASE 72 U/L (46-116); BILIRUBIN - TOTAL 0.14 mg/dL (0.2-1.3); CALCIUM 7.9 mg/dL (8.5-10.1); CARBON DIOXIDE 21.2 mmol/L (21.0-32.0); CHLORIDE - SERUM 110 mmol/L (98-107); CREATININE - SERUM 0.7 mg/dL (0.6-1.3); GLUCOSE 89 mg/dL (74-106); MAGNESIUM - SERUM 2.1 mg/dL (1.8-2.4); POTASSIUM - SERUM 3.9 mmol/L (3.5-5.1); PROTEIN - SERUM 5.8 g/dL (6.4-8.2); SODIUM 141 mmol/L (136-145); eGFR NON AFRICAN AMERICAN > 90 mL/min (90-120)
[2018-10-19 06:59] LABS: ALT (SGPT) 11 U/L (10-68); CALC OSMOLALITY 277 mosm/kg (275-300); UREA NITROGEN 6 mg/dL (7-18)
[2018-10-19] MEDS ORDERED: PROTONIX40 MG PO (10:41)
[2018-10-19] MEDS ORDERED: CARAFATE1 G PO (10:41)
[2018-10-19] MEDS ORDERED: ULTRAM50 MG PO (10:42)
--- NOTE | 2018-10-19 10:47 | NUR ---
AMBULATING IN HALLWAY. WANTING TO GO HOME. STATES SHE HAS BEEN A PATIENT OF DR JAMES PALMER FOR 17 YEARS AND SHE DOESN'T WANT TO WAIT ON DR STILES. ASKED PATIENT TO GO BACK TO ROOM TO BE AVAILABLE FOR TO SPEAK WITH DR HWANG WHILE HE'S MAKING ROUNDS ON THE FLOOR.
--- NOTE | 2018-10-19 13:50 | NUR ---
PT D/C TO HOME WITH FAMILY MEMBER, D/C INSTRUCTIONS GIVEN WITH VERBAL UNDERSTANDING AND SIGNED D/C PAPERWORK, COPY SENT WITH PT.
--- NOTE | 2018-10-19 15:13 | MORECARE ---
CASE MANAGEMENT DISCHARGE SUMMARY PATIENT: LADONNA MARTINEZ UNIT: [id number] ADM DATE: 10/14/18 AGE: 43 : 79 SEX: F ROOM/BED: D.1212 AUTHOR: MATTY,DOC PHYSICIAN: REFERRING PHYSICIAN: KRISTEN COHN MD DATE OF SERVICE: 10/19/18 Discharge Plan Patient Name: LADONNA MARTINEZ Facility: [facility]:[place] : 1975 Planned Disposition: Home Anticipated Discharge Date: 10/19/18 Discharge Date: 10/19/2018 Expected LOS: 5 Initial Reviewer: [email or web address] Initial Review Date: 10/17/2018 Generated: 10/19/18 4:13 pm Comments DCP- Discharge Planning Updated by [email or web address]: Mary Stephens on 10/17/18 10:[address] Patient Name: LADONNA MARTINEZ Admission Status: ER Accout number: [id number] Admission Date: 10-14-2018 : 1975 Admission Diagnosis: Attending: SKUI, Current LOS: 3 Anticipated DC Date: Planned Disposition: Home Primary Insurance: [employer] Discharge Planning Comments: CM MET WITH PATIENT ABOUT DC PLANNING/NEEDS. STATES NO NEEDS AT THIS TIME. STATES SHE WILL POSSIBLY BE DISCHARGED TODAY. CM WILL FOLLOW AND ASSIST NEEDED WITH DC PLANNING/NEEDS. STATES USED DR. COHN IN THE PAST AND PLANS TO HAVE HIM HER PCP IF HE CAN TAKE HER. Transmission Technician: Mary Stephens DCPIA - Discharge Planning Initial Assessment Updated by [email or web address]: Mary Stephens on 10/17/18 11:09 am * Is the patient Alert and Oriented? Yes * PCP NONE/SUKI * Pharmacy HOME [facility] [address] * Preadmission Environment Home with Family * ADLs Independent * Equipment None * List name and contact numbers for known caregivers / representatives who currently or will assist patient after discharge: WIL [phone] * Community resources currently utilized None * Additional services required to return to the preadmission environment? No * Can the patient safely return to the preadmission environment? Yes * Has this patient been hospitalized within the prior 30 days at any hospital? Yes Last DP export: 10/17/18 10:18 a Patient Name: SHARP, LADONNA Page 41946 at 1513 All edits/amendments must be made on the electronic document DICTATION DATE: 10/19/181511 DRY KILN OPERATOR HELPER: WILLOW 10/19/181511 RPT#: [id number] DC DATE:10/19/18 STATUS: DIS IN [facility] [address] [place] [address] END OF REPORT
--- NOTE | 2018-10-20 13:22 | MORECARE ---
CASE MANAGEMENT DISCHARGE SUMMARY PATIENT: LADONNA MARTINEZ UNIT: [id number] ADM DATE: 10/14/18 AGE: 43 : 79 SEX: F ROOM/BED: D.1212 AUTHOR: YG STARR PHYSICIAN: REFERRING PHYSICIAN: KRISTEN COHN MD DATE OF SERVICE: 10/20/18 Discharge Plan Patient Name: LADONNA MARTINEZ Facility: [facility]:[place] : 1975 Planned Disposition: Home Anticipated Discharge Date: 10/19/18 Discharge Date: 10/19/2018 Expected LOS: 5 Initial Reviewer: [email or web address] Initial Review Date: 10/17/2018 Generated: 10/20/18 2:22 pm Comments DCP- Discharge Planning Updated by [email or web address]: Mary Stephens on 10/20/18 12:[address] Patient Name: LADONNA MARTINEZ Admission Status: ER Accout number: [id number] Admission Date: 10-14-2018 : 1975 Admission Diagnosis: Attending: SUKI, Current LOS: 5 Anticipated DC Date: 10-19-2018 Planned Disposition: Home Primary Insurance: [employer] MED[employer] Discharge Planning Comments: Work Excuse for Ladonna Martinez. Ms. Martinez was a patient in the hospital from 10/14/18 through 10/19/18. Please excuse from work for these days. Thank you, Mary Stephens slitting machine operator helper Enameler: Mary Stephens DCP- Discharge Planning Updated by [email or web address]: Mary Stephens on 10/17/18 10:[address] Patient Name: LADONNA MARTINEZ Admission Status: ER Accout number: [id number] Admission Date: 10-14-2018 : 1975 Admission Diagnosis: Attending: SUKI, Current LOS: 3 Anticipated DC Date: Planned Disposition: Home Primary Insurance: [employer] MED[employer] Discharge Planning Comments: CM MET WITH PATIENT ABOUT DC PLANNING/NEEDS. STATES NO NEEDS AT THIS TIME. STATES SHE WILL POSSIBLY BE DISCHARGED TODAY. CM WILL FOLLOW AND ASSIST NEEDED WITH DC PLANNING/NEEDS. STATES USED DR. COHN IN THE PAST AND PLANS TO HAVE HIM HER PCP IF HE CAN TAKE HER. Enameler: Mary Stephens DCPIA - Discharge Planning Initial Assessment Updated by [id number]: Mary Stephens on 10/17/18 11:09 am * Is the patient Alert and Oriented? Yes * PCP NONE/SUKI * [facility] [place] * Preadmission Environment Home with Family * ADLs Independent * Equipment None * List name and contact numbers for known caregivers / representatives who currently or will assist patient after discharge: WIL [phone] * Community resources currently utilized None * Additional services required to return to the preadmission environment? No * Can the patient safely return to the preadmission environment? Yes * Has this patient been hospitalized within the prior 30 days at any hospital? Yes Last DP export: 10/19/18 2:13 p Patient Name: LADONNA MARTINEZ Page [phone] at 1322 All edits/amendments must be made on the electronic document DICTATION DATE: 10/20/18 1322 WOOD ROUTER: WILLOW 10/20/18 1322 RPT#: [id number] DC DATE:10/19/18 STATUS: DIS IN [facility] [address] [place] [address] END OF REPORT
== END 2018-10-19 13:59 | disposition home or self-care (01) | DRG 384 ==
LOC: D.ER 13:46 → D.M3 18:35 → D.EDHOLD 18:35 → D.M3 19:49
PROVIDERS: Anesthesiology; Family Medicine; Internal Medicine Nephrology; ADMIT Family Medicine
PROC: 0DB58ZX Excision of Esophagus, Via Natural or Artificial Opening Endoscopic, Diagnostic (ICD-10-PCS; principal; 2018-10-16)
PROC: 0DB68ZX Excision of Stomach, Via Natural or Artificial Opening Endoscopic, Diagnostic (ICD-10-PCS; 2018-10-16)
DX: K25.9 Gastric ulcer, unspecified as acute or chronic, without hemorrhage or perforation (principal); N13.0 Hydronephrosis with ureteropelvic junction obstruction; F17.213 Nicotine dependence, cigarettes, with withdrawal; K29.70 Gastritis, unspecified, without bleeding; K29.80 Duodenitis without bleeding; K44.9 Diaphragmatic hernia without obstruction or gangrene; K22.70 Barrett's esophagus without dysplasia; D50.9 Iron deficiency anemia, unspecified; F41.9 Anxiety disorder, unspecified; F32.9 Major depressive disorder, single episode, unspecified; N92.1 Excessive and frequent menstruation with irregular cycle